=== PATIENT | female | born 1950 | race Caucasian/White ===

== ENCOUNTER → 2016-12-19 | Outpatient (CLI) | payer BC ==
--- NOTE | 2016-12-19 17:42 | MY ---
EXAMINATION: Bilateral digital mammography utilizing CAD. HISTORY: Screening exam. Comparison is made to previous studies dated 01/14/2015, 10/21/2013. FINDINGS: Bilateral scattered fibroglandular densities. No suspicious calcifications, masses or a rchitectural distortions. No pathologic appearing lymph nodes, no abnormal skin thickening or nipp le inversion. CAD highlighted regions appear normal at this time. IMPRESSION: BI-RADS category I - negative mammogram. Continued screening according to ACR-ACS gu idelines suggested. THE FALSE-NEGATIVE RATE OF MAMMOGRAM IS APPROXIMATELY 10%. MANAGEMENT OF A PALPABLE ABNORMALITY MUST BE BASED UPON CLINICAL GROUNDS. SENSITIVITY FOR DETECTION OF ABNORMALITIES IN DENSE BREASTS IS LOW. NOTE: A letter will be sent to the patient regarding findings. [facility] -- [facility] [phone] - FAX [phone]
--- NOTE | 2016-12-21 18:53 | XA ---
Exam Date: 12/19/16 Patient's Age: 66 HEIGHT: 65.0 in. WEIGHT: 200.0 lbs. INDICATIONS: Back pain, bilateral oophorectomy, , height loss, hysterectomy, postmenopausal FRACTURES: TREATMENTS: Aspirin, fish oil, Ocuvite, Restasis, simvastatin ASSESSMENT: The BMD measured at Femur Neck Mean is 0.889 g/cm2 with a T-score of -1.1. This patient is considered osteopenic according to World Health Organization ( WHO) criteria. Bone density is between 10% and 25% below young normal. Fracture risk is moderate. Treatment is advised. The BMD measured at Femur Troch Mean is 0.843 g/cm2 with a T-score of -0.1 is normal. Fracture risk is low. RESULTS: Site Region Age Classification T-Score BMD AP Spine L1-L4 64.6 Normal 0.1 1.203 g/cm2 Dual Femur Neck Mean 64.6 Osteopenia -1.1 0.889 g/cm2 Dual Femur Troch Mean 64.6 N/A -0.1 0.843 g/cm2 Dual Femur Total Mean 64.6 Normal -0.2 0.978 g/cm2 World Health Organization - Criteria for post-menopausal, women: Normal: T-Score at or above -1 SD Osteopenia: T-Score between -1 and -2.5 SD Osteoporosis: T-Score at or below -2.5 SD RECOMMENDATION: Pharmacologic treatment recommendations & Initiate pharmacologic treatment: - In those with hip or vertebral (clinical or asymptomatic) fractures - In those with T -scores <-2.5 at the femoral neck, total hip, or lumbar spine by DXA - In postmenopausal women and men age 50 and older with low bone mass (T-score between -1.0 and -2.5, osteopenia) at the femoral neck, total hip, or lumbar spine by DXA and a 10-year hip fracture probability >3 % or a 10-year major osteoporosis-related fracture probability >20% based on the [place]-adapted WHO absolute fracture risk model (Fracture Risk Algorithm (FRAX); www. NOF.org and www.shef.ac.uk/FRAX) FOLLOW UP: People with diagnosed cases of osteoporosis or at high risk for fracture should have regular bone mineral density tests. For patients eligible for Medicare, routine testing is allowed once every 2 years. The testing frequency can be increased to 1 year for patients who have rapidly progressing disease, those who are reviewing or discontinuing medial therapy to restore bone mass, or have additional risk factors. People with diagnosed cases of osteoporosis or osteopenia should be regularly tested for bone mineral density. For patient eligible for Medicare, routine testing is allowed once every 2 years. The testing frequency can be increased to 1 year for patients who have rapidly progressing disease, or for those who are receiving medial therapy to restore bone mass. [facility] -- [facility] [phone] - FAX: [phone] HUSSEIN
== END ==
LOC: MW.MAM 12:45
PROVIDERS: ATTEND Family Medicine
DX: Z00.00 Encounter for general adult medical examination without abnormal findings (principal)
CPT/HCPCS: 77080; G0202

== ENCOUNTER 2018-01-11 08:41 | Day surgery (SDC) | payer MEDICARE, BC ==
[~2018-01-11 08:41] MED LIST: Lactated Ringers 1,000 ML IV SCH; Lidocaine 2% 5 ML SDV ONE; Propofol 200 MG/20 ML SDV ONE
--- NOTE | 2018-01-11 09:40 | PCM.PREANE ---
Preanesthetic Assessment - Anesthesia/Transfusion/Family Hx Anesthesia History: Prior Anesthesia Without Reaction Family History of Anesthesia Reaction: No Transfusion History: No Prior Transfusion(s) - Review of Systems General: No Symptoms Pulmonary: No Symptoms Cardiovascular: No Symptoms Neurological: No Symptoms Other: Reports: None - Physical Assessment NPO Status Date: 01/10/18 Height: 1.63 m Weight: 86.183 kg ASA Class: 2 Mental Status: Alert & Oriented x3 Airway Class: Mallampati = 1 Dentition: Reports: Normal Dentition ROM/Head Extension: Full Lungs: Clear to Auscultation, Normal Respiratory Effort Cardiovascular: Regular Rate, Regular Rhythm - Allergies Allergies/Adverse Reactions: Allergies Allergy/AdvReac Type Severity Reaction Status Date / Time No Known Allergies Allergy Verified 01/08/18 16:57 - Anesthesia Plan Pre-Op Medication Ordered: None - Acknowledgements Anesthesia Type Planned: MAC Pt an Appropriate Candidate for the Planned Anesthesia: Yes Alternatives and Risks of Anesthesia Discussed w Pt/Guardian: Yes Pt/Guardian Understands and Agrees with Anesthesia Plan: Yes Additional Comments: PMH: hld, thyroid replacement, renal stones, dry eyes PreAnesthesia Questionnaire HEENT History: Reports: Cataract, Macular Degeneration, Other (See Below) Other HEENT History: wears glasses Cardiovascular History: Reports: High Cholesterol Gastrointestinal History: Reports: Chronic Constipation, GERD, Other (See Below) Other Gastrointestinal History: hx of hemorrhoids Genitourinary History: Reports: Renal Calculus Other Genitourinary History: history of kidney stones [employer] History: Reports: Musculoskeletal History: Reports: Back Pain, Chronic, Neck Pain, Chronic, Other (See Below) Other Musculoskeletal History: current pain in left foot ???FX Neurological History: Reports: Other (See Below) Other Neuro History: degenerative disc disease in neck and back Endocrine/Metabolic History: Reports: Obesity/BMI 30+, Other (See Below) Other Endocrine/Metabolic History: has enlarged thyroid on the right side Oncologic (Cancer) History: Reports: None Dermatologic History: Reports: Eczema - Past Surgical History GI Surgical History: Reports: Appendectomy Female Surgical History: Reports: Hysterectomy, Lithotripsy/ESWL - SUBSTANCE USE Smoking Status *Q: Never Smoker Recreational Drug Use History: No - HOME MEDS Home Medications: Home Meds Aspirin 81 mg PO DAILY 11/05/15 [History] Lutein/Minerals/Vit A,C & E [Ocuvite] 1 tab PO DAILY 11/05/15 [History] Simvastatin 20 mg PO BEDTIME 11/05/15 [History] Docusate Sodium [Colace] 50 mg PO BEDTIME PRN 01/08/18 [History] Krill/Om-3/DHA/EPA/Phospho/Ast [Megared [place]-3 Krill Oil Sfgl] 1 cap PO DAILY 01/08/18 [History] cycloSPORINE [Restasis Multidose] 1 drop EYEBOTH BID 01/08/18 [History] - CURRENT (IN HOUSE) MEDS Current Meds: Current Medications Lactated Ringer's (Ringers, Lactated) 1,000 mls @ 125 mls/hr IV ASDIRECTED LESTER Last Admin: 01/11/18 09:15 Dose: 125 mls/hr Discontinued Medications Lidocaine (Xylocaine-Mpf 2%) Confirm Administered Dose 5 ml .ROUTE .STK-MED ONE Stop: 01/11/18 07:39 Propofol (Diprivan 20 Ml) Confirm Administered Dose 400 mg .ROUTE .STK-MED ONE Stop: 01/11/18 07:39
--- NOTE | 2018-01-11 10:42 | PCM.OPNOTE ---
- General Post-Op/Procedure Note Date of Surgery/Procedure: 01/11/18 Operative Procedure(s): Colonoscopy w/ cold sigmoid colon polypectomy Pre Op Diagnosis: Change in bowel habits Post-Op Diagnosis: Sigmoid polyp. Diverticulosis Anesthesia Technique: MAC (ASA II) Primary Surgeon: Moris Woody Condition: Good Free Text/Narrative:: Dictation [id number] CPT CODE [id number]
[2018-01-11] MEDS ORDERED: Lactated Ringers 1,000 ML IV SCH (10:45)
--- NOTE | 2018-01-11 11:04 | PCM.POSTAN ---
POST ANESTHESIA ASSESSMENT - MENTAL STATUS Mental Status: Alert, Oriented - RESPIRATORY Respiratory Status: Respiratory Rate WNL, Airway Patent, O2 Saturation Stable - CARDIOVASCULAR CV Status: Pulse Rate WNL - GASTROINTESTINAL GI Status: No Symptoms - PAIN Pain Score: 0 - POST OP HYDRATION Hydration Status: Adequate & Stable - OBSERVATIONS Free Text/Narrative:: no anesthesia problems
--- NOTE | 2018-01-11 12:16 | PCM48HPAN ---
Post Anesthesia Note - EVALUATION WITHIN 48HRS OF ANESTHETIC Vital Signs in Normal Range: Yes Patient Participated in Evaluation: Yes Respiratory Function Stable: Yes Airway Patent: Yes Cardiovascular Function Stable: Yes Hydration Status Stable: Yes Pain Control Satisfactory: Yes Nausea and Vomiting Control Satisfactory: Yes Mental Status Recovered: Yes Resp Rate: 16
[2018-01-11 13:46] VITALS: BP 120/58
--- NOTE | 2018-01-11 14:30 | OR ---
SURGEON: Moris Woody M.D. DATE OF PROCEDURE: 01/11/2018 OPERATION PERFORMED: Colonoscopy with cold distal sigmoid polypectomy. ANESTHESIA: MAC. ASA CLASSIFICATION: II. PREOPERATIVE DIAGNOSIS: Change in bowel habits. POSTOPERATIVE DIAGNOSES: 1. Distal sigmoid polyp. 2. Severe sigmoid diverticulosis. DESCRIPTION OF PROCEDURE: The patient was taken to the endoscopy room and positioned on the endoscopy table in the left lateral decubitus position. Time-out was called for appropriate identification of the patient and procedure. Monitored anesthesia care was provided. The colonoscope was inserted into the rectum and advanced with moderate difficulty to the cecum where the colonoscope was retroflexed to visualize the ascending colon from below. The colonoscope was then straightened and slowly withdrawn. The cecum, ascending colon, hepatic flexure, transverse colon, and splenic flexure showed no tumors, polyps, diverticula, or angiodysplastic changes. Descending colon shows mild diverticular changes. Sigmoid colon demonstrates severe diverticulosis. No stricture, spasm, or bleeding was noted. One small polyp was encountered in the distal sigmoid colon and removed with the cold biopsy forceps. The colonoscope was then withdrawn to the rectum and retroflexed to visualize the anal orifice from above. Again, no tumors or polyps were seen and there were no acute hemorrhoidal changes. The colonoscope was then straightened, the rectum aspirated, and the colonoscope removed. The patient tolerated the procedure well and was taken to recovery room in stable condition. CHANCE OROZCO /[id number]
== END 2018-01-11 12:30 | disposition home or self-care (01) ==
LOC: MW.SDS 08:41
PROVIDERS: ATTEND Surgery
DX: K59.09 Other constipation (principal); K57.30 Diverticulosis of large intestine without perforation or abscess without bleeding; K63.5 Polyp of colon; E66.9 Obesity, unspecified; Z68.32 Body mass index [BMI] 32.0-32.9, adult; E03.9 Hypothyroidism, unspecified; E78.00 Pure hypercholesterolemia, unspecified; Z79.82 Long term (current) use of aspirin; Z79.899 Other long term (current) drug therapy
CPT/HCPCS: 45380; J7120; 88305; J2704

== ENCOUNTER 2021-12-08 09:03 | Emergency (ER) | payer MEDICARE, BC ==
[2021-12-08 09:51] VITALS: BP 137/65; PULSE 78
[2021-12-08] MEDS ORDERED: Sodium Chloride 0.9% 1,000 ML IV ONE (09:55)
[2021-12-08] MEDS ORDERED: Ondansetron 4 MG/2 ML SDV IVPUSH ONE (10:11)
[2021-12-08] MEDS ORDERED: Ketorolac 30 MG/ML SDV IVPUSH ONE (10:11)
[2021-12-08 11:24] LABS: BLOOD UREA NITROGEN,BUN 11 mg/dL (7.0-18.0); CARBON DIOXIDE,CO2 29.9 mmol/L (21.0-32.0); CHLORIDE,CL 102 mmol/L (98-107); GLUCOSE RANDOM 102 mg/dL (74-106); LIPASE 175 U/L (73-393); POTASSIUM,K 4.7 mmol/L (3.5-5.1); SODIUM,NA 139 mmol/L (136-145)
== END 2021-12-08 12:08 | disposition home or self-care (01) ==
LOC: MW.ED 09:03
DX: K57.92 Diverticulitis of intestine, part unspecified, without perforation or abscess without bleeding (principal); N39.0 Urinary tract infection, site not specified; E78.00 Pure hypercholesterolemia, unspecified; I10 Essential (primary) hypertension; E66.9 Obesity, unspecified; Z68.31 Body mass index [BMI] 31.0-31.9, adult; Z79.899 Other long term (current) drug therapy; Z79.82 Long term (current) use of aspirin; Z90.49 Acquired absence of other specified parts of digestive tract; Z90.710 Acquired absence of both cervix and uterus
CPT/HCPCS: 36415; 74176; 80053; 81001; 81025; 83690; 85025; 96374; 96375; 99284; J1885; J2405; J7030